=== PATIENT | female | born 1980 | race Caucasian/White ===

== ENCOUNTER → 2016-12-31 | Outpatient (CLI) | payer BC ==
[~2016-12-31] MED LIST: HYDR-3498 PO; IBUP800T25 PO
--- NOTE | 2016-12-31 17:28 | RADRPT ---
PROCEDURE: US Pelvis. CLINICAL INDICATION: Menorrhagia. TECHNIQUE: The pelvis was evaluated with transabdominal and transvaginal sonography in the axial a nd sagittal planes. COMPARISON: No prior study is available for comparison. FINDINGS: Uterus: 8.8 x 4.7 x 4.8 cm. Endometrium: 7.3 mm. Right ovary: 2.7 x 0.9 x 1.6 cm. Left ovary: 2.7 x 1.4 x 1.9 cm. Uterine masses: There is an anterior submucosal fibroid measuring 1.4 x 1.2 x 1.3 cm. There is no o ther uterine mass. Ovarian masses: None. Color Doppler and pulsed Doppler sonography demonstrate normal flow to the ova christianne. Other pelvic masses: None. Free fluid: None. IMPRESSION: 1. Anterior submucosal fibroid measuring 1.4 x 1.2 x 1.3 cm. 2. Otherwise normal pelvic ultrasound. RPTAT: QQ .Tristan Mojica MD, Date Time Electronically viewed and signed by .Tristan Mojica MD, on 12/31/2016 17:27 .R/
== END | disposition home or self-care (01) ==
LOC: LAB 13:07
PROVIDERS: ATTEND Obstetrics & Gynecology
DX: N92.0 Excessive and frequent menstruation with regular cycle (principal); D21.5 Benign neoplasm of connective and other soft tissue of pelvis
CPT/HCPCS: 76830; 76856; 84702

== ENCOUNTER → 2017-01-14 | Outpatient (CLI) | payer BC ==
[2017-01-14 10:23] LABS: ALBUMIN 4.1 g/dl (3.3-4.9)
[2017-01-14 10:24] LABS: POTASSIUM 3.8 mmol/L (3.5-5.1)
[2017-01-14 10:26] LABS: ALBUMIN/GLOBULIN RATIO 1.17; BILIRUBIN,INDIRECT 0.4 mg/dl (0-1.1); BILIRUBIN,TOTAL 0.4 mg/dl (0.2-1.3); CREATININE 0.87 mg/dl (0.44-1.00); TOTAL PROTEIN 7.6 g/dl (6.1-8.1)
[2017-01-14 10:27] LABS: CALCIUM 8.8 mg/dl (8.4-10.2); CHOL/HDL RATIO 2.9 RATIO
[2017-01-14 11:59] LABS: THYROID STIMULATING HORMONE 0.771 MIU/L (0.465-4.680)
== END | disposition home or self-care (01) ==
LOC: LAB 09:15
PROVIDERS: ATTEND Internal Medicine
DX: R73.9 Hyperglycemia, unspecified (principal); D34 Benign neoplasm of thyroid gland; E55.9 Vitamin D deficiency, unspecified
CPT/HCPCS: 80053; 80061; 82652; 83036; 84439; 84443

== ENCOUNTER 2017-02-28 17:37 | Emergency (ER) | payer BC ==
[~2017-02-28] VITALS: Ht 160 cm; Wt 82.0 kg
[2017-02-28 18:10] VITALS: Ht 160 cm; Wt 82.0 kg
[2017-02-28] MEDS ORDERED: KETOROLAC 30 MG INJ IM STA (18:46)
[2017-02-28] MEDS ORDERED: HYDR-906 PO (18:59)
[2017-02-28] MEDS ORDERED: IBUP-1542 PO (18:59)
--- NOTE | 2017-02-28 19:29 | ERD ---
ER Documentation Chief Complaint Date/Time DATE: 02/28/17 TIME: 19:22 Chief Complaint JAW PAIN SINCE YESTERDAY HPI Patient is a 36-year-old female s/p tonsillectomy, who presents emergency department with left-sided jaw pain which started yesterday afternoon. Patient states pain started after eating. Patient reports taking Motrin with no relief of pain. 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 Patient denies any fevers or chills today. Patient does have history of extensive dental work in her left lower jaw. Patient does report grinding her teeth often while sleeping. Patient also reports left-sided neck pain which radiates into her head. Patient denies any sudden onset of headache. Patient denies any blurry vision, nausea, vomiting or LOC. ROS All systems reviewed and are negative except as per history of present illness. Medications Home Meds Active Scripts Hydrocodone/Acetaminophen ([place] 5-325 Tablet) 1 Each Tablet, 1 TAB PO Q6H Y for PAIN, #10 TAB Prov:KASSY STANFORD PA-C 02/28/17 Ibuprofen* (Motrin*) 600 Mg Tab, 600 MG PO Q6, #30 TAB Prov:KASSY STANFORD-C 02/28/17 Ibuprofen* (Motrin*) 800 Mg Tab, 800 MG PO Q6, #30 TAB Prov:ZANDRA GARCIA NP 05/10/16 Hydrocodone Bit-Acetaminophen* ([place]*) 5-325 Mg Tab, 1 TAB PO Q6 Y for PAIN, # 20 TAB Prov:ZANDRA GARCIA NP 05/10/16 Allergies Allergies: Coded Allergies: ciprofloxacin (Verified Allergy, Mild, VOMITS, 12/03/15) PMhx/Soc History of Surgery: Yes (tonsillectomy 1999) Anesthesia Reaction: No Hx Neurological Disorder: No Hx Respiratory Disorders: No Hx Cardiac Disorders: No Hx Psychiatric Problems: No Hx Miscellaneous Medical Probl: No Hx Alcohol Use: No Hx Substance Use: No Hx Tobacco Use: No Smoking Status: Never smoker Physical Exam Vitals Vital Signs Date Time Temp Pulse Resp B/P Pulse Ox O2 Delivery O2 Flow Rate FiO2 02/28/17 18:10 97.3 89 19 146/99 98 Physical Exam GENERAL: Well-developed, well-nourished female. Appears in no acute distress. HEAD: Normocephalic, atraumatic. No deformities or ecchymosis. EYE: Pupils equal, round, and reactive to light. EOMs intact. No conjunctival erythema. No eye discharge. ENT: External ear without any masses or tenderness. Auditory canals clear bilaterally. TM visualized bilaterally, non-erythematous, non-bulging. Nasal mucosa pink with no discharge. Oropharynx is pink without any tonsillar erythema or exudates. No uvula deviation. No kissing tonsils. Dental work noted of the left lower molars. NECK: Supple. No meningismus. Normal ROM of the neck. Tender to palpation of the left SCM muscle. LUNG: Clear to auscultation bilaterally. No rhonchi, wheezing, rales or coarse breath sounds. HEART: Regular rate and rhythm. No murmurs, rubs or gallops. BACK: No midline tenderness. EXTREMITIES: Equal pulses bilaterally. No peripheral clubbing, cyanosis or edema. No unilateral leg swelling. NEUROLOGIC: Alert and oriented to person, place and time. Moving all four extremities. 5/5 strength in all extremities. Normal speech. Steady gait. SKIN: Normal color. Warm and dry. No rashes or lesions. Results 24 hrs Current Medications Medications (Trade) Dose Ordered Sig/Marisabel Route PRN Reason Start Time Stop Time Status Last Admin Dose Admin Ketorolac Tromethamine (Toradol) 30 mg ONCE STAT IM 02/28/17 18:46 02/28/17 18:48 DC 02/28/17 18:56 Procedures/MDM MEDICAL DECISION MAKING: This is a 36-year-old female who presents with left-sided jaw pain which started yesterday. Patient did report often grinding her teeth when sleeping. She denies any falls or trauma.. Vital signs were reviewed. Patient is afebrile. Patient is not hypoxic. The patient did not have trismus, muffled voice, uvula deviation, unilateral tonsillar swelling, or drooling. Denied any falls or trauma, no x-ray imaging was indicated at this time. Given these findings, the patients presentation is most consistent with jaw pain and TMJ dysfunction. I have a much lower clinical concern for jaw dislocation, mandible fracture, strep pharyngitis, acute tetanus, peritonsillar abscess, retropharyngeal abscess or Ludwigs angina. PRESCRIPTIONS: Ibuprofen, [place] DISCHARGE: At this time, patient is stable for discharge and outpatient management. I have instructed the patient to follow-up with his/her primary care physician in 1-2 days. She was advised that she should follow-up with a dentist the next 1-2 days. I have discussed with the patient the possibility of needing to see a specialist for further workup and imaging studies if symptoms persist. I have instructed the patient to promptly return to the ER for any new or worsening symptoms including increased pain, fever, nausea, vomiting, weakness or LOC. The patient and/or family expressed understanding of and agreement with this plan. All questions were answered. Home care instructions were provided. Patient's blood pressure was elevated (>120/80) but appears stable without evidence of hypertensive emergency, hypertensive urgency or end-organ failure. I had discussion with the patient about the risks of hypertension. I have advised the patient to follow up with his/her primary care physician for outpatient monitoring and treatment for hypertension in 2-3 days. I have instructed the patient to return to the ER for any new or worsening symptoms including chest pain, shortness of breath, headache, blurred vision, confusion, nausea, vomiting or LOC. Departure Diagnosis: Primary Impression: Jaw pain Condition: Stable Patient Instructions: Dental Pain Referrals: ROSE DAMON (PCP) [facility] YOU HAVE RECEIVED A MEDICAL SCREENING EXAM AND THE RESULTS INDICATE THAT YOU DO NOT HAVE A CONDITION THAT REQUIRES URGENT TREATMENT IN THE EMERGENCY DEPARTMENT. FURTHER EVALUATION AND TREATMENT OF YOUR CONDITION CAN WAIT UNTIL YOU ARE SEEN IN YOUR DOCTORS OFFICE WITHIN THE NEXT 1-2 DAYS. IT IS YOUR RESPONSIBILITY TO MAKE AN APPOINTMENT FOR FOLOW-UP CARE. IF YOU HAVE A PRIMARY DOCTOR --you should call your primary doctor and schedule an appointment IF YOU DO NOT HAVE A PRIMARY DOCTOR YOU CAN CALL OUR PHYSICIAN REFERRAL HOTLINE AT IF YOU CAN NOT AFFORD TO SEE A PHYSICIAN YOU CAN CHOSE FROM THE FOLLOWING [facility] [address] [facility] [address]EN[address] [facility] [address] [facility] [address] [facility] [address] [facility]. [facility] [address] [facility]. [facility] YOU HAVE RECEIVED A MEDICAL SCREENING EXAM AND THE RESULTS INDICATE THAT YOU DO NOT HAVE A CONDITION THAT REQUIRES URGENT TREATMENT IN THE EMERGENCY DEPARTMENT. FURTHER EVALUATION AND TREATMENT OF YOUR CONDITION CAN WAIT UNTIL YOU ARE SEEN IN YOUR DOCTORS OFFICE WITHIN THE NEXT 1-2 DAYS. IT IS YOUR RESPONSIBILITY TO MAKE AN APPOINTMENT FOR FOLOW-UP CARE. IF YOU HAVE A PRIMARY DOCTOR --you should call your primary doctor and schedule and appointment IF YOU DO NOT HAVE A PRIMARY DOCTOR YOU CAN CALL OUR PHYSICIAN REFERRAL HOTLINE AT . IF YOU CAN NOT AFFORD TO SEE A PHYSICIAN YOU CAN CHOSE FROM THE FOLLOWING [facility] INSTITUTIONS: [facility] [address] [place] [address] [facility] [address] [place] [place] [id number] [place] [address] [address] [place] [address] [facility] DENTIST ([facility] walk in clinic) Additional Instructions: Call your primary care doctor/DENTIST TOMORROW for an appointment during the next 1-2 days.See the doctor sooner or return here if your condition worsens before your appointment time. KASSY STANFORD PA-C Feb 28, 2017 19:29
== END 2017-02-28 19:26 | disposition home or self-care (01) ==
LOC: FTE 17:37
DX: R68.84 Jaw pain (principal)
CPT/HCPCS: 96372; 99284; J1885

== ENCOUNTER → 2017-03-09 | Outpatient (CLI) | payer BC ==
[~2017-03-09] MED LIST changes: +HYDR-906 PO; +IBUP-1542 PO
[2017-03-09 12:44] LABS: ADD SCAN DIFF NO
[2017-03-09 12:46] LABS: BASOPHILS % 0.3 % (0.0-2.0); EOSINOPHILS % 0.6 % (0.0-7.0); HEMOGLOBIN 12.9 g/dl (12.0-16.0); LYMPHOCYTES # 1.9 10^3/ul (0.8-2.9); LYMPHOCYTES % 31.1 % (15.0-51.0); MEAN CORPUSCULAR HGB CONC 31.5 g/dl (32.0-37.0); MEAN CORPUSCULAR VOLUME 85.8 fl (82.0-101.0); MONOCYTE # 0.7 10^3/ul (0.3-0.9); MONOCYTES % 10.5 % (0.0-11.0); NEUTROPHIL # 3.6 10^3/ul (1.6-7.5); NEUTROPHILS % 57.3 % (39.0-77.0); PLATELET COUNT 282 10^3/UL (140-415); RED BLOOD COUNT 4.78 10^6/ul (4.20-5.40); RED CELL DISTRIBUTION WIDTH 14.3 % (11.5-14.5); WHITE BLOOD COUNT 6.2 10^3/ul (4.8-10.8)
== END | disposition home or self-care (01) ==
LOC: LAB 12:18
PROVIDERS: ATTEND Internal Medicine
DX: R22.0 Localized swelling, mass and lump, head (principal); Z51.81 Encounter for therapeutic drug level monitoring
CPT/HCPCS: 82150; 85025

== ENCOUNTER 2017-03-17 11:48 | Day surgery (SDC) | payer BC ==
[~2017-03-17] VITALS: Ht 162.6 cm; Wt 76.8 kg
[2017-03-17] MEDS ORDERED: WEIGHT LOSS MED (12:25)
[2017-03-17] MEDS ORDERED: PANTOPRAZOLE (12:25)
[2017-03-17] MEDS ORDERED: BIRTH CONTROL (12:25)
[2017-03-17 12:26] VITALS: Ht 162.6 cm; Wt 76.8 kg
[2017-03-17 13:05] VITALS: BP 130/89; PULSE 72; RESP 21
[2017-03-17] MEDS ORDERED: FENTAnyl 50 MCG/ML VIAL ONE (13:08)
[2017-03-17] MEDS ORDERED: PROPOFOL 0 ML ONE (13:08)
[2017-03-17] MEDS ORDERED: LIDOCAINE 2% (SDV) 5 ML INJ ONE ×2 (13:08→13:11)
[2017-03-17] MEDS ORDERED: PROPOFOL 40 ML ONE (13:11)
[2017-03-17 13:49] VITALS: BP 129/88; PULSE 68; RESP 12
--- NOTE | 2017-03-17 13:51 | GILP ---
DATE OF PROCEDURE: 03/17/2017 NAME OF PROCEDURE: Esophagogastroduodenoscopy and biopsy. SURGEON: Clayton Meza MD PREOPERATIVE DIAGNOSES: 1. Abdominal pain. 2. Chronic heartburn. POSTOPERATIVE DIAGNOSES: 1. Hiatal hernia. 2. Gastroesophageal reflux disease. 3. Gastritis with erosions. 4. Gastric mucosal biopsies were taken for Helicobacter pylori test. INDICATION FOR THE PROCEDURE: Ms. Vicki Feldman is a 36-year-old female patient who had upper abd ominal pain and chronic heartburn, not responding to therapy. The patient was scheduled for endosco pic examination for further evaluation. The procedure and possible complications were well explained to the patient. The patient understood and consented to the procedure. DESCRIPTION OF PROCEDURE: Under the influence of anesthesia, the gastroscope was carefully introduc ed into the esophagus and under direct vision, it was advanced to the stomach and through the pyloru s into the duodenal bulb and descending duodenum. FINDINGS: ESOPHAGUS: The patient had a small hiatal hernia and gastroesophageal reflux disease. STOMACH: She had gastritis with erosions. Gastric mucosal biopsies were taken for H. pylori test. DUODENUM: Normal. The patient tolerated the procedure very well and there was no complication from the procedure. At the end of the procedure, she was awake with stable vital signs and she was discharged home to the [facility] of her family. IMPRESSION: 1. Small hiatal hernia. 2. Gastroesophageal reflux disease. 3. Gastritis with erosions. 4. Gastric mucosal biopsies were taken for Helicobacter pylori test. PLAN: 1. Continue pantoprazole. 2. Add Zantac 300 mg p.o. at bedtime. 3. Await H. pylori test report. Dictated By: CLAYTON CLEMENTE/JAM Conf#: [id number] DID#: [id number] CC: CLAYTON MEZA MD;*EndCC*
== END 2017-03-17 14:25 | disposition home or self-care (01) ==
LOC: GIL 11:48
PROVIDERS: ATTEND Internal Medicine Gastroenterology
DX: K44.9 Diaphragmatic hernia without obstruction or gangrene (principal); K29.60 Other gastritis without bleeding; K21.9 Gastro-esophageal reflux disease without esophagitis; B96.81 Helicobacter pylori [H. pylori] as the cause of diseases classified elsewhere; E66.9 Obesity, unspecified; Z68.29 Body mass index [BMI] 29.0-29.9, adult
CPT/HCPCS: 84703; 87081; J3010

== ENCOUNTER → 2017-04-01 | Outpatient (CLI) | payer BC ==
[~2017-04-01] MED LIST changes: +BIRTH CONTROL; -HYDR-3498 PO; -HYDR-906 PO; -IBUP-1542 PO; -IBUP800T25 PO; +PANTOPRAZOLE; +WEIGHT LOSS MED
[2017-04-01 11:30] LABS: ADD SCAN DIFF NO
[2017-04-01 11:49] LABS: BASOPHILS % 0.2 % (0.0-2.0); EOSINOPHILS % 0.3 % (0.0-7.0); HEMATOCRIT 42.6 % (37.0-47.0); HEMOGLOBIN 13.7 g/dl (12.0-16.0); LYMPHOCYTES # 2.3 10^3/ul (0.8-2.9); LYMPHOCYTES % 26.2 % (15.0-51.0); MEAN CORPUSCULAR HEMOGLOBIN 26.8 pg (29.0-33.0); MEAN CORPUSCULAR HGB CONC 32.2 g/dl (32.0-37.0); MEAN CORPUSCULAR VOLUME 83.4 fl (82.0-101.0); MEAN PLATELET VOLUME 11.2 fl (7.4-10.4); MONOCYTE # 0.7 10^3/ul (0.3-0.9); NEUTROPHIL # 5.6 10^3/ul (1.6-7.5); NEUTROPHILS % 65.1 % (39.0-77.0); PLATELET COUNT 311 10^3/UL (140-415); RED BLOOD COUNT 5.11 10^6/ul (4.20-5.40); RED CELL DISTRIBUTION WIDTH 14.3 % (11.5-14.5); WHITE BLOOD COUNT 8.6 10^3/ul (4.8-10.8)
[2017-04-01 11:53] LABS: INR 0.96; PROTIME 12.8 Sec (12.2-14.2)
[2017-04-01 12:00] LABS: ALBUMIN/GLOBULIN RATIO 1.42; BILIRUBIN,INDIRECT 0.4 mg/dl (0-1.1); BILIRUBIN,TOTAL 0.4 mg/dl (0.2-1.3); CALCIUM 9.5 mg/dl (8.4-10.2); CHOL/HDL RATIO 3.4 RATIO; CREATININE 0.92 mg/dl (0.44-1.00); POTASSIUM 4.3 mmol/L (3.5-5.1); TOTAL PROTEIN 8.5 g/dl (6.1-8.1)
[2017-04-01 12:57] LABS: THYROID STIMULATING HORMONE 2.03 MIU/L (0.465-4.680)
--- NOTE | 2017-04-01 14:15 | RADRPT ---
PROCEDURE: XR Chest. CLINICAL INDICATION: Preoperative. TECHNIQUE: Two views. Frontal and lateral. COMPARISON: 08/22/2015. FINDINGS: There is a benign calcified granuloma in the right upper lobe laterally. The lungs are otherwise cl ear. The heart size is normal. There is no pleural effusion. There is no pneumothorax. IMPRESSION: 1. Previous granulomatous disease. 2. Otherwise unremarkable chest radiograph. 3. No change from 08/22/2015. RPTAT: QQ .Tristan Moijca MD, MD Date Time Electronically viewed and signed by .Tristan Mojica MD, MD on 04/01/2017 14:14 .R/
== END | disposition home or self-care (01) ==
LOC: LAB 09:26
PROVIDERS: ATTEND Internal Medicine
DX: Z01.818 Encounter for other preprocedural examination (principal); R07.89 Other chest pain; R05 Cough; N93.8 Other specified abnormal uterine and vaginal bleeding; Z83.3 Family history of diabetes mellitus; Z82.49 Family history of ischemic heart disease and other diseases of the circulatory system
CPT/HCPCS: 71020; 80053; 80061; 82043; 82306; 83036; 84443; 84702; 85025; 85610; 85730

== ENCOUNTER → 2017-04-08 | Outpatient (CLI) | payer BC ==
--- NOTE | 2017-04-08 14:04 | RADRPT ---
Vent Rate: 72 bpm RR Interval: [address] Interval: 156 msec QRS Duration: 84 msec QT Interval: 432 msec QTC Interval: 473 msec P-R-T [place]: 57 - 8 - 23 degrees Normal sinus rhythm Normal ECG Electronically Signed By: Mook Thompson [id number]
== END | disposition home or self-care (01) ==
LOC: EKG 11:37
PROVIDERS: ATTEND Internal Medicine
DX: Z01.818 Encounter for other preprocedural examination (principal)
CPT/HCPCS: 93005

== ENCOUNTER 2017-04-22 06:21 | Day surgery (SDC) | payer BC ==
[2017-04-21 11:49] VITALS: BMI 31.2
[2017-04-22] VITALS (11 sets, daily range): BP systolic 115–142; BP diastolic 71–99; PULSE 62–89; RESP 12–18; Ht 160 cm; Wt 80.0 kg
[~2017-04-22] VITALS: Ht 160 cm; Wt 80.0 kg
[2017-04-22] MEDS ORDERED: NEOSTIGMINE 3 MG/3 ML SYRINGE ONE (07:00)
[2017-04-22] MEDS ORDERED: CEFAZOLIN 1 GM INJ ONE ×2 (07:00→07:56)
[2017-04-22] MEDS ORDERED: GLYCOPYRROLATE 0.4 MG INJ ONE (07:00)
[2017-04-22] MEDS ORDERED: RANI300T3 PO (07:29)
--- NOTE | 2017-04-22 07:35 | HPN ---
Date/Time of Note Date/Time of Note DATE: 04/22/17 TIME: 07:35 Interval H&P Admission Note Pt. seen H&P reviewed: No system changes KWAME PEREZ MD Apr 22, 2017 07:35
[2017-04-22] MEDS ORDERED: FENTAnyl 50 MCG/ML VIAL ONE (07:53)
[2017-04-22] MEDS ORDERED: SUCCINYLCHOLINE CHLORIDE 100 MG/5 ML SYG IV ONE (07:55)
[2017-04-22] MEDS ORDERED: LIDOCAINE 2% (SDV) 5 ML INJ ONE (07:55)
[2017-04-22] MEDS ORDERED: ROCURONIUM 50 MG INJ ONE (07:55)
[2017-04-22] MEDS ORDERED: PROPOFOL 20 ML ONE (07:56)
[2017-04-22] MEDS ORDERED: DIPHENHYDRAMINE 50 MG INJ IV PRN (09:00)
[2017-04-22] MEDS ORDERED: ONDANSETRON 4 MG INJ IV PRN (09:00)
[2017-04-22] MEDS ORDERED: FENTAnyl 50 MCG/ML VIAL IV PRN (09:00)
[2017-04-22] MEDS ORDERED: MEPERIDINE 25 MG INJ IV PRN (09:00)
[2017-04-22] MEDS ORDERED: METOCLOPRAMIDE 10 MG INJ IV PRN (09:00)
[2017-04-22] MEDS ORDERED: HYDROmorphONE (0.2 MG/ML) 10ML SYG IV PRN ×3 (09:00)
--- NOTE | 2017-04-22 09:32 | PD.PPDC ---
GEOTECHNICAL ENGINEERING TECHNICIAN Discharge Instruction Diagnosis Final Diagnosis: menorrhagia submucous fibroid Condition Patient Condition: Stable Diet Diet: Resume Regular Diet Activity/Restrictions Activity: May Shower Restrictions: No Sexual Activity Nothing in the Vagina No [place] No Tampons, douche Follow-up Follow-up with Physician: 2, Week/Weeks Return to clinic for PROJECT SAFETY MANAGER Instructions: Fever greater than 101 [place] Worsening abdominal pain Excessive Vaginal Bleeding More than 2 pads per hour Unable to tolerate diet KWAME PEREZ MD Apr 22, 2017 09:32
[2017-04-22] MEDS: FENTAnyl 50 MCG/ML VIAL IV PRN ×4 (09:38→10:05)
[2017-04-22] MEDS ORDERED: HYDROCODONE/APAP (5/325) TAB PO ONE (11:00)
--- NOTE | 2017-04-26 05:00 | OPR ---
DATE OF OPERATION: 04/22/2017 PREOPERATIVE DIAGNOSIS: Menorrhagia and submucous myoma. POSTOPERATIVE DIAGNOSIS: Menorrhagia and submucous myoma. See pathological report. PROCEDURE: Hysteroscopy and myomectomy. ANESTHESIA: General. ANESTHESIOLOGIST: Jadiel Aragon MD. SURGEON: Jo Milner MD. FREIGHT CAR REPAIRER: Dick from [employer]. OPERATIVE PROCEDURE: After appropriate induction of general anesthesia, the patient was placed in dorsal lithotomy position. Perianal and vaginal area were prepped and draped in usual aseptic manner. On inspection, external genitalia revealed no gross abnormality. Bimanual examination of the uterus appeared to be 8-10 weeks' gestation of size, form, and consistency. There was no palpable adnexa pathology. A weighted speculum was introduced. The cervix was identified, which was grasped with a single-tooth tenaculum, and the cavity was dilated. Uterine cavity was sounded, which was 10 cm in depth and was dilated up to 6 and size of 6 hysteroscope was introduced into the uterine cavity. Visualized the fundus and both ostium were seen. The myoma was located in upper right side, which was resected with a soft blade. An additional D and C was done, including myoma was resected. The entire myoma was resected up to the base. Under direct visualization and with obtaining a good amount of endometrial tissues in the retrieval which was sent to pathology. The procedure was completed. The instrument was removed from the operative field. Fluid deficit is 100 mL. Sponge count was correct. The patient tolerated the procedure well and sent to the recovery room in stable condition. Dictated By: Jo Milner MD /[email or web address]/belinda /Document#: [id number]
== END 2017-04-22 11:50 | disposition home or self-care (01) ==
LOC: SDS 06:21
PROVIDERS: ATTEND Obstetrics & Gynecology
DX: D25.0 Submucous leiomyoma of uterus (principal); N84.0 Polyp of corpus uteri; E66.9 Obesity, unspecified; Z68.31 Body mass index [BMI] 31.0-31.9, adult
CPT/HCPCS: 58561; J0690; J1170; J2175; J2405; J2710; J3010; J7999

== ENCOUNTER → 2017-11-17 | Outpatient (CLI) | END | disposition home or self-care (01) ==

== ENCOUNTER → 2018-07-11 | Outpatient (CLI) | END | disposition home or self-care (01) ==

== ENCOUNTER → 2018-09-21 | Outpatient (CLI) | payer BC ==
[~2018-09-21] MED LIST changes: +RANI300T3 PO
== END | disposition home or self-care (01) ==
LOC: RAD 11:21
PROVIDERS: ATTEND Anesthesiology
DX: M54.9 Dorsalgia, unspecified (principal)

== ENCOUNTER → 2019-03-27 | Outpatient (CLI) | payer BC ==
--- NOTE | 2019-03-27 14:42 | ECORPT ---
DATE OF SERVICE: 03/27/2019 SUPERVISING PHYSICIAN: Yamil Mendiola MD CLINICAL INDICATION: Chest pain. PROCEDURE: The patient was attached to continuous EKG and blood pressure monitoring. She was placed on the treadmill, which was increased in gradual intervals per Steve protocol. This was preceded by resting echocardiographic images and followed by stress echocardiographic images. RESTING EKG: Sinus rhythm. No significant abnormalities. STRESS EKG: No changes. CLINICAL DATA: Resting blood pressure is 138/87. Peak blood pressure is 178/85. The resting heart rate is 83. Peak heart rate is 155 equaling 87% of maximal predicted heart rate. Reason for termina tion protocol and fatigue. SYMPTOMS: None. RESTING ECHOCARDIOGRAPHIC IMAGES: There are no regional wall motion abnormalities. There is preserv ed LV function. The estimated ejection fraction is 65%. Echocardiogram post-peak exercise, there is normal augmentation of all brooks, there are no regional wall motion abnormalities, there is no evide nce of ischemia, the ejection fraction post-peak exercise is 75%. CONCLUSION: Negative stress echocardiogram without evidence of ischemia. Dictated By: YAMIL SAM/JAM Conf#: [id number] DID#: [id number]
--- NOTE | 2019-03-28 15:32 | RADRPT ---
Echocardiogram Report Patient Name: CAMERON GONZALEZPatient ID: [id number] : 1980 (38y 4m)Study Date: 03/27/2019 11:46:53 AM Gender: FAccession #: [id number] Tech: Cyndee Roberts RDCS Location: EKG Ref.Physician: MOOK THOMPSON Height(Cm): BSA: Weight(Kg): Quality: AdequateOrder Physician: MOOK THOMPSON Account #: Procedures: Echocardiographic Report: Transthoracic echocardiogram with complete 2D, M-Mode, and doppler examination. Indications: Chest Pain. Measurements: 2D/M Mode Doppler Measurement Value Normal Range Measurement Value Normal Range LVIDd 2D 5.2 [ 3.8 - 5.2 ] cm AV Peak Daniel 1.3 [ 100.0 - 170.0 ] cm/sec LVIDs 2D 3.0 [ 2.2 - 3.5 ] cm AV Peak PG 7.0 [ 2.0 - 9.0 ] mmHg LVPWd 2D 0.8 [ 0.6 - 0.9 ] cm AI Peak PG 44.0 mmHg IVSd 2D 0.8 [ 0.6 - 0.9 ] cm AI Peak Daniel 3.3 cm/sec AoR Diam 2D 2.8 [ 2.3 - 3.1 ] cm AI PHT 889.0 msec EDV 2D 128.0 [ 46.0 - 106.0 ] ml LVOT Peak Daniel 0.8 [ 70.0 - 110.0 ] cm/sec ESV 2D 35.6 [ 14.0 - 42.0 ] ml LVOT Peak PG 2.0 [ 2.0 - 6.0 ] mmHg EF 2D 72.2 [ 54.0 - 74.0 ] percent MV E Peak Daniel 0.7 [ 60.0 - 130.0 ] cm/sec LA Dimen 2D 3.4 [ 2.7 - 3.8 ] cm MV A Peak Daniel 0.8 [ 100.0 - 120.0 ] cm/sec MV E/A 0.9 [ 0.8 - 1.5 ] ratio MV Decel Time 158 [ 104 - 258 ] msec Lat E` Daniel 0.1 [ 10.0 - 15.0 ] cm/sec Lateral E/E` 5.6 [ 1.0 - 2.0 ] ratio MV E/A 0.9 [ 0.8 - 1.5 ] ratio Findings: Left Ventricle: Normal left ventricular systolic function. Normal left ventricular cavity size. Normal left ventricular wall thickness. Ejection fraction is visually estimated at 55 %. Tissue Doppler/Mitral Doppler indices are consistent with impaired relaxation (Stage I diastolic dysfunction). Right Ventricle: Normal right ventricular size. Normal right ventricular systolic function. Left Atrium: The left atrium is normal in size. Right Atrium: The right atrium is normal in size. Mitral Valve: Normal appearance and function of the mitral valve with trace physiologic regurgitation. Aortic Valve: No hemodynamically significant aortic stenosis by doppler. Aortic cusps appear mildly calcified. Trace aortic valve regurgitation. Tricuspid Valve: Normal appearance and function of the tricuspid valve with trace physiologic regurgitation. Pulmonic Valve: Normal pulmonic valve appearance. Pericardium: Normal pericardium with no significant pericardial effusion. Aorta: Normal aortic root. IVC: Normal size and normal respiratory collapse consistent with normal right atrial pressure. Conclusions: Normal left ventricular systolic function. Normal left ventricular cavity size. Normal left ventricular wall thickness. Ejection fraction is visually estimated at 55 %. Tissue Doppler/Mitral Doppler indices are consistent with impaired relaxation (Stage I diastolic dysfunction). Normal right ventricular size. Normal right ventricular systolic function. The left atrium is normal in size. The right atrium is normal in size. No significant valvular stenosis or regurgitation seen. Normal pericardium with no significant pericardial effusion. Electronically Signed By: Mook Thompson 2019-03-28 15:31:32 PDT
== END | disposition home or self-care (01) ==
LOC: EKG 10:39
PROVIDERS: ATTEND Internal Medicine Cardiovascular Disease
DX: R07.9 Chest pain, unspecified (principal)
CPT/HCPCS: 93306; 93350

== ENCOUNTER → 2019-03-28 | Outpatient (CLI) | payer BC | END | disposition home or self-care (01) | LOC: LAB 13:04 | PROVIDERS: ATTEND Specialist | DX: M19.90 Unspecified osteoarthritis, unspecified site (principal) | CPT/HCPCS: 80053; 82306; 82550; 82607; 83970; 84439; 84443; 85025; 85651; 86021; 86038; 86140; 86200; 86226; 86235; 86430 ==

== ENCOUNTER → 2019-04-30 | Outpatient (CLI) | payer BC | END | disposition home or self-care (01) | LOC: LAB 10:34 | PROVIDERS: ATTEND Internal Medicine Cardiovascular Disease | DX: I10 Essential (primary) hypertension (principal) | CPT/HCPCS: 80048; 80061; 83735 ==